=== PATIENT | female | born 1975 | race American Indian/Alaskan Native ===

== ENCOUNTER 2021-12-21 23:52 | Emergency (ER) | payer SELFPAY ==
[2021-12-22 00:16] VITALS: BP 128/79
== END 2021-12-22 17:12 | disposition left against medical advice (07) ==
LOC: ED 23:52
DX: R07.89 Other chest pain (principal); I10 Essential (primary) hypertension; M54.2 Cervicalgia; Z53.21 Procedure and treatment not carried out due to patient leaving prior to being seen by health care provider